=== PATIENT | female | born 1980 | race Two or more races ===

== ENCOUNTER → 2020-03-10 | Outpatient (CLI) | payer OTHER ==
[~2020-03-10] MED LIST: DOCU-131 PO; FERR325T18 PO; ONDA4TAB10 PO; OXYC-302 PO; SULF1TAB24 PO
[2020-03-10 09:41] LABS: BASOPHILS # (AUTO) 0.04 x10^3/uL (0-0.1); BASOPHILS % (AUTO) 1 % (0-1); EOSINOPHILS # (AUTO) 0.06 x10^3/uL (0-0.4); EOSINOPHILS % (AUTO) 1 % (1-7); LYMPHOCYTES # (AUTO) 1.67 x10^3/uL (1-3.4); LYMPHOCYTES % (AUTO) 32 % (22-44); MD NO; MEAN CORPUSCULAR HEMOGLOBIN 24.9 pg (27.0-34.8); MEAN CORPUSCULAR HGB CONC 31.5 g/dL (32.4-35.8); MEAN CORPUSCULAR VOLUME 79.1 fL (80-100); MEAN PLATELET VOLUME 7.7 fL (7.4-10.4); MONOCYTES # (AUTO) 0.33 x10^3/uL (0.2-0.8); MONOCYTES % (AUTO) 6 % (2-9); NEUTROPHILS # (AUTO) 3.17 x10^3/uL (1.8-6.8); NEUTROPHILS % (AUTO) 60 % (42-75); PLATELET COUNT 332 x10^3/uL (130-400); RED BLOOD COUNT 4.22 x10^6/uL (3.82-5.3); RED CELL DISTRIBUTION WIDTH 19.9 % (9.6-15.2)
[2020-03-10 09:50] LABS: INTERNATIONAL NORMALIZED RATIO 0.97 (0.93-1.1)
[2020-03-10 09:52] LABS: ALANINE AMINOTRANSFERASE 18 U/L (12-78); ALBUMIN 3.4 g/dL (3.4-5.0); ANION GAP 4 mmol/L (5-15); CALCIUM 8.8 mg/dL (8.5-10.1); CHLORIDE 109 mmol/L (98-107); CREATININE 0.78 mg/dL (0.55-1.02); MICROSCOPIC INDICATED
[2020-03-10 09:55] LABS: ALKALINE PHOSPHATASE 80 U/L (45-117); BILIRUBIN,TOTAL 0.2 mg/dL (0.2-1.0); TOTAL PROTEIN 8.6 g/dL (6.4-8.2)
== END | disposition home or self-care (01) ==
LOC: STAR 08:19
PROVIDERS: ATTEND Urology
DX: Z01.812 Encounter for preprocedural laboratory examination (principal); N20.2 Calculus of kidney with calculus of ureter; Z20.828 Contact with and (suspected) exposure to other viral communicable diseases
CPT/HCPCS: 36415; 80053; 81001; 81003; 85025; 85610; 87077; 87086; 87635; 93005

== ENCOUNTER 2020-03-15 06:07 | Inpatient (IN) | payer OTHER ==
[2020-03-13 13:40] LABS: MICROSCOPIC NOT IND
[~2020-03-15] VITALS: Ht 162.6 cm; Wt 93.3 kg
[2020-03-15] MEDS ORDERED: MIDAZOLAM 1 MG/ML, 2ML ONE (06:21)
[2020-03-15] MEDS ORDERED: FENTANYL PF 250 MCG/5ML ONE (06:22)
[2020-03-15] MEDS ORDERED: CEFOTETAN PMX 2GM/50ML 50 ML IV ONE ×2 (06:30→07:00)
[2020-03-15] MEDS ORDERED: CHLORHEXIDINE 15 ML UDC ONE (06:54)
[2020-03-15] MEDS ORDERED: CEFOTETAN PMX 2GM/50ML 50 ML ONE (06:54)
[2020-03-15] MEDS ORDERED: LACTATED RINGERS 1,000 ML IV SCH (06:57)
[2020-03-15] MEDS ORDERED: CHLORHEXIDINE 15 ML UDC MM ONE (07:00)
[2020-03-15] MEDS ORDERED: INDIGO CARMINE 0.8%, 5ML ONE (07:18)
[2020-03-15] MEDS ORDERED: EPINEPHRINE 1 MG/ML, 1ML ONE (07:18)
[2020-03-15] MEDS ORDERED: BUPIVACAINE/PF 0.25% ONE (07:18)
[2020-03-15 07:26] LABS: HCG UR SG 1.028 (1.003-1.030)
[2020-03-15] MEDS ORDERED: SUGAMMADEX 200 MG/2 ML IVPush ONE (07:28)
[2020-03-15] MEDS ORDERED: BUPIVACAINE/PF-EPI 0.25% 1:200K INFIL ONE (08:34)
[2020-03-15] MEDS ORDERED: PROMETHAZINE 25 MG/ML, 1ML IVPush PRN (09:30)
[2020-03-15] MEDS ORDERED: LABETALOL 5MG/ML, 20ML IV PRN (09:30)
[2020-03-15] MEDS ORDERED: OXYcodone 5 MG/5 ML ORAL.SOL UDC PO PRN (09:30)
[2020-03-15] MEDS ORDERED: KETOROLAC 30 MG/1 ML IVPush PRN (09:30)
[2020-03-15] MEDS ORDERED: ACETAMINOPHEN 325 MG TABLET PO PRN (09:30)
[2020-03-15] MEDS ORDERED: hydrALAzine 20 MG/ML, 1ML IV PRN (09:30)
[2020-03-15] MEDS ORDERED: NEOSPORIN OINT, 15GM ONE (10:52)
[2020-03-15] MEDS ORDERED: FENTANYL PF 100 MCG/2ML ONE (11:16)
[2020-03-15] MEDS ORDERED: HYDROmorphone 1 MG/ML, 1ML INJ ONE (11:17)
[2020-03-15] MEDS ORDERED: OXYcodone 5 MG/5 ML ORAL.SOL UDC ONE (11:17)
[2020-03-15] MEDS ORDERED: PROMETHAZINE 25 MG/ML, 1ML ONE (11:18)
[2020-03-15] MEDS: FENTANYL PF 100 MCG/2ML IV PRN ×2 (11:19→11:43)
[2020-03-15] MEDS: HYDROmorphone 1 MG/ML, 1ML INJ IVPush PRN ×6 (11:27→12:10)
[2020-03-15] MEDS ORDERED: KETOROLAC 30 MG/1 ML ONE (11:47)
[2020-03-15] MEDS ORDERED: HYDROmorphone 2 MG/ML, 1ML ONE (11:47)
[2020-03-15] MEDS ORDERED: morphine SULFATE 10 MG/ML, 1ML IV PRN (13:30)
[2020-03-15] MEDS ORDERED: ONDANSETRON 2MG/ML, 2ML IV PRN (13:30)
[2020-03-15] MEDS ORDERED: TEMAZEPAM 15 MG CAPSULE PO PRN (13:30)
[2020-03-15] MEDS ORDERED: NEOSTIGMINE 1 MG/ML, 10ML ONE (14:19)
[2020-03-15] MEDS ORDERED: ROCURONIUM 10MG/ML,5ML ONE (14:19)
[2020-03-15] MEDS ORDERED: PROPOFOL 10 MG/ML, 20ML ONE (14:19)
[2020-03-15] MEDS ORDERED: SUCCINYLCHOLINE 20 MG/ML, 10ML ONE (14:19)
[2020-03-15] MEDS ORDERED: DEXAMETHASONE 4 MG/ML, 1ML ONE (14:19)
[2020-03-15] MEDS ORDERED: GLYCOPYRROLATE 0.2MG/1ML, 5ML ONE (14:19)
[2020-03-15] MEDS ORDERED: ONDANSETRON 2MG/ML, 2ML ONE (14:19)
[2020-03-15] MEDS: HYDROcodone/APAP 5/325 TABLET PO PRN (16:01)
[2020-03-15] MEDS: SODIUM CHLORIDE 0.9% 1,000 ML IV SCH (18:20)
[2020-03-15] MEDS: CEFOTETAN PMX 2GM/50ML 50 ML IV SCH (18:20)
[2020-03-15 19:16] VITALS: BP 99/61
[2020-03-15 23:34] VITALS: BP 118/74
[2020-03-16] MEDS: HYDROcodone/APAP 5/325 TABLET PO PRN ×3 (00:02→14:10)
[2020-03-16 03:44] VITALS: BP 96/63
[2020-03-16 06:07] LABS: ANION GAP 2 mmol/L (5-15); CHLORIDE 109 mmol/L (98-107); CREATININE 0.83 mg/dL (0.55-1.02)
[2020-03-16 07:30] VITALS: BP 105/72
[2020-03-16] MEDS ORDERED: ENOXAPARIN 40 MG/0.4 ML SQ SCH (08:00)
[2020-03-16] MEDS: CEFOTETAN PMX 2GM/50ML 50 ML IV SCH (08:24)
[2020-03-16] MEDS: SODIUM CHLORIDE 0.9% 1,000 ML IV SCH (08:25)
[2020-03-16 14:38] VITALS: BP 135/89
[2020-03-16] MEDS ORDERED: HYDR-3237 PO (15:17)
[2020-03-16] MEDS ORDERED: DOCU-131 PO (15:18)
[2020-03-16] MEDS ORDERED: NITR100C56 PO (15:19)
== END 2020-03-16 15:58 | disposition home or self-care (01) | DRG 661 ==
LOC: ORIP 06:07 → 4NE 12:56
PROVIDERS: ADMIT Urology; ATTEND Urology
PROC: 8E0W4CZ Robotic Assisted Procedure of Trunk Region, Percutaneous Endoscopic Approach (ICD-10-PCS; 2020-03-15)
PROC: 0TT04ZZ Resection of Right Kidney, Percutaneous Endoscopic Approach (ICD-10-PCS; principal; 2020-03-15 07:30)
DX: N13.2 Hydronephrosis with renal and ureteral calculous obstruction (principal)
CPT/HCPCS: 36415; 80048; 81003; 81025; 85014; 85018; 86850; 86900; 87077; 87086; 87186; 88307; C1729; G0378; J0171; J1100; J1170; J1650; J1885; J2250; J2405; J2550; J2704; J2710; J3010; J3490; C1760; J0330; J2270; J7030; J7120